=== PATIENT | female | born 1940 | race Caucasian/White ===

== ENCOUNTER 2017-12-12 15:45 | Outpatient (CLI) | payer MEDICARE ==
[~2017-12-12 15:45] MED LIST: ACET-2319 PO; APIX5TAB3 PO; ASPI-611 PO; ATOR20TA66 PO; CHOL100046 PO; DIGO250T77 PO; LEVO100T9 PO; MONT10TA21 PO; SOTA80TA73 PO
[2017-12-12 16:47] LABS: BASOPHILS % (AUTO) 0.6 % (0-1); EOSINOPHILS # (AUTO) 0.2 X10'3 (0-0.9); EOSINOPHILS % (AUTO) 2.9 % (0-6); HEMOGLOBIN 14.4 g/dl (12.0-16.0); LYMPHOCYTES # (AUTO) 1.6 X10'3 (1.1-4.8); LYMPHOCYTES % (AUTO) 25.5 % (21-51); MEAN CORPUSCULAR HEMOGLOBIN 29.3 PG (27.0-31.0); MEAN CORPUSCULAR HGB CONC 32.7 % (33.0-36.5); MEAN CORPUSCULAR VOLUME 89.4 FL (78-98); MEAN PLATELET VOLUME 8.3 FL (7.4-10.4); MONOCYTES # (AUTO) 0.7 X10'3 (0-0.9); MONOCYTES % (AUTO) 10.6 % (2-12); NEUTROPHILS # (AUTO) 3.8 X10'3 (1.8-7.7); NEUTROPHILS % (AUTO) 60.4 % (42-75); PLATELET COUNT 257 X10'3 (140-440); RED BLOOD COUNT 4.92 X10'6 (4.20-5.60); RED CELL DISTRIBUTION WIDTH 12.9 % (11.5-14.5); WHITE BLOOD COUNT 6.3 X10'3 (4.5-11.0)
[2017-12-12 17:03] LABS: ALANINE AMINOTRANSFERASE 84 U/L (12-78); ALBUMIN 3.7 G/DL (3.4-5.0); ALBUMIN/GLOBULIN RATIO 1.3 (1.1-1.5); ALKALINE PHOSPHATASE 93 IU/L (46-116); ANION GAP 6 (8-16); ASPARTATE AMINO TRANSFERASE 22 U/L (10-37); BILIRUBIN,TOTAL 0.5 MG/DL (0.1-1.0); BLOOD UREA NITROGEN 15 MG/DL (7-18); BUN/CREATININE RATIO 22.7 (6.6-38.0); CALCIUM 8.9 MG/DL (8.5-10.1); CHLORIDE 97 MMOL/L (99-107); CREATININE 0.66 MG/DL (0.40-0.90); GLUCOSE 90 MG/DL (70-104); POTASSIUM 4.4 MMOL/L (3.5-5.1); SODIUM 135 MMOL/L (135-145); TOTAL PROTEIN 6.5 G/DL (6.4-8.2); eGFR 87 ML/MIN
[2017-12-12 17:13] LABS: INR 1.2 INR
[2017-12-12 17:14] LABS: PARTIAL THROMBOPLASTIN TIME 27 SECONDS (22-32)
== END 2017-12-12 23:59 | disposition home or self-care (01) ==
LOC: LAB 15:45
PROVIDERS: ATTEND Internal Medicine Interventional Cardiology
DX: I48.0 Paroxysmal atrial fibrillation (principal); E78.49 Other hyperlipidemia; I10 Essential (primary) hypertension; I63.40 Cerebral infarction due to embolism of unspecified cerebral artery; I65.23 Occlusion and stenosis of bilateral carotid arteries; Z79.01 Long term (current) use of anticoagulants; Z72.89 Other problems related to lifestyle; Z87.891 Personal history of nicotine dependence
CPT/HCPCS: 36415; 80053; 80162; 85025; 85610; 85730

== ENCOUNTER 2017-12-17 10:12 | Day surgery (SDC) | payer MEDICARE ==
[~2017-12-17] VITALS: Ht 160 cm; Wt 57.2 kg
[2017-12-17] VITALS (23 sets, daily range): BP systolic 82–151; BP diastolic 30–112
[2017-12-17] MEDS ORDERED: MIDAZolam 5mg/ml 2ml vial IV ONE (10:50)
[2017-12-17] MEDS ORDERED: normal saline 1000ml 1,000 ML IV SCH (10:50)
[2017-12-17] MEDS ORDERED: fentaNYL/PF 50MCG/1 ML 2ML syringe IV ONE ×2 (10:50→12:45)
[2017-12-17] MEDS ORDERED: EDOX60TA PO (11:01)
[2017-12-17] MEDS ORDERED: amiodarone 50MG/ML inj IV ONE (12:40)
[2017-12-17] MEDS: amiodarone 150mg/dext, iso-os 100 ML IV SCH ×2 (12:52→13:04)
== END 2017-12-17 15:05 | disposition home or self-care (01) ==
LOC: SSTAY O 10:12
PROVIDERS: ATTEND Internal Medicine Interventional Cardiology
DX: I48.0 Paroxysmal atrial fibrillation (principal); I65.23 Occlusion and stenosis of bilateral carotid arteries; I10 Essential (primary) hypertension; E78.5 Hyperlipidemia, unspecified; E89.0 Postprocedural hypothyroidism; Z87.891 Personal history of nicotine dependence; Z90.49 Acquired absence of other specified parts of digestive tract; Z72.89 Other problems related to lifestyle; Z85.850 Personal history of malignant neoplasm of thyroid; Z86.73 Personal history of transient ischemic attack (TIA), and cerebral infarction without residual deficits; Z79.899 Other long term (current) drug therapy; Z98.890 Other specified postprocedural states; Z82.49 Family history of ischemic heart disease and other diseases of the circulatory system; Z83.6 Family history of other diseases of the respiratory system
CPT/HCPCS: 92960; 93005; J0282; J2250; J3010; J7030

== ENCOUNTER 2024-12-05 15:45 | Inpatient (IN) | payer MEDICARE ==
[~2024-12-05] VITALS: Ht 160 cm; Wt 54.5 kg
[~2024-12-05 15:45] MED LIST changes: -ACET-2319 PO; -APIX5TAB3 PO; -ASPI-611 PO; +DIGO250T2 PO; -DIGO250T77 PO; +EDOX60TA2 PO; +MONT-47 PO; -MONT10TA21 PO
--- NOTE | 2024-12-05 16:16 | ELECTROCARDIOGRAPH REPORT ---
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 Ruben Garzon Measurements Intervals [place] Rate: 103 P: 0 OK: 0 QRS: -75 QRSD: 133 T: 102 QT: 392 QTc: 513 Interpretive Statements Atrial fibrillation Ventricular premature complex Left bundle branch block Baseline wander in lead(s) V4 Electronically Signed On 12-11-2024 7:51:[address] Ruben Garzon Please click the below link to view image of tracing.
[2024-12-05 16:21] LABS: MEAN PLATELET VOLUME 7.6 FL (7.4-10.4); RED CELL DISTRIBUTION WIDTH 14.6 % (11.5-14.5)
[2024-12-05 16:41] LABS: CREATININE 0.74 MG/DL (0.40-0.90); PRO BRAIN NATRIURETIC PEPTIDE 1510 PG/ML (0-450); TOTAL CARBON DIOXIDE 26.0 MMOL/L (24-32); eCRCL 46 ML/MIN; eGFR 75 ML/MIN
--- NOTE | 2024-12-05 16:43 | Physician Documentation ---
History of Present Illness Chief Complaint: Weakness Stated Complaint: VOMITTING Time Seen by MD: 16:08 OK to notify your PCP?: Yes Source: patient Mode of Arrival: EMS, Air Transport Exam Limitations: no limitations HPI Ms. Carty is an 84 y/o female with PMhx significant for HTN, HLD, Mitral Valve Regurgitation now s/p clip, A-fib on Xarelto, and Hypothyroidism who presents her today as a transfer from [facility] for evaluation by ACS for an incarerated abdominal hernia and SBO. Over the past 3-4 days, she has had progressively worsening ABD pain. She was seen in the ED today and had a CT ABD/Pelvis as part of her evaluation that showed an anterior abdominal wall hernia in the lower ABD along the midline measuring 3.2 cm containing an obstructed loop of bowel and serving as the source of intra-abdominal high grade SBO. She was made NPO and transfer was initiated. Lactic was within normal range. UA with ? infection so received IV Pip-Tazo. She arrived here hemodynamically normal and without complaints. Actually states that her ABD feels a bit better. Medication Reconciliation Allergies: Coded Allergies: No Known Allergies (Unverified , 01/04/15) Scheduled Atorvastatin Calcium (Atorvastatin Calcium), 20 MG PO DAILY, (Reported) Cholecalciferol (Vitamin D), 1,000 UNIT PO DAILY, (Reported) Digoxin (Digitek), 125 MCG PO DAILY, (Reported) Edoxaban Tosylate (Savaysa), 1 TAB PO DAILY, (Reported) Levothyroxine Sodium (Levothyroxine Sodium), 100 MCG PO DAILY, (Reported) Montelukast Sodium (Singulair), 1 TAB PO DAILY, (Reported) Sotalol Hcl* (Betapace*), 1 TAB PO BID, (Reported) Past Medical History Past Medical History: Atrial Fibrillation, Hypothyroidism Past Surgical History: no surgical history Patient History: FH: emphysema FATHER, , Age: 73, Cause: Emphysema lung FH: heart disease MOTHER, , Age: 92, Cause: Stroke Alcohol Use: None Drug Use: none Lives with: Spouse Lives In: Home Review of Systems All Other Systems at this time: Reviewed and Negative Physical Exam Vital Signs: RN Vital Signs have been reviewed: Yes, Temperature: 98.0, Source: Oral, Heart Rate: 88, Respiratory Rate: 18, BP: 136/92, Pulse Oximetry: 97, Weight: 54.550 Oxygen Flow Rate: 3.0 Physical Exam GEN: Alert and oriented and in NAD. HEENT: NC/AT. PERRLA. No scleral icterus. MMM. No oral lesions. NECK: Supple. No JVD. CHEST: RRR. No M/G/T. LUNGS: CTA B. No W/R/R. ABD: Soft. NTND. + BS. No rebounding or guarding. BACK: No CVA TTP. EXT: No c/c/e. NEURO: Alert and oriented x 4. Cooperative. Sensorimotor intact x 4 extremities. General Appearance: alert Progress Results/Orders Reviewed/noted all lab results: Yes Results/Orders Orders - PEDRO AGUIRRE MD Chest,Single View (12/05/24 15:55) Monitor (12/05/24 15:55) Saline Lock (12/05/24 15:55) Oxygen (12/05/24 15:55) BMP (12/05/24 15:55) PBNP (12/05/24 15:55) Hs Troponin I W Calculations (12/05/24 15:55) Hs Troponin I W Calculations (12/05/24 17:55) Hs Troponin I W Calculations (12/05/24 18:55) Completed Orders - PEDRO AGUIRRE MD Chest,Single View (12/05/24 15:55) Cbc/Diff (12/05/24 15:55) Electrocardiogram (12/05/24 15:55) Vital Signs 12/05/24 12/05/24 15:46 15:58 Temp 98.0 Pulse 88 Resp 18 B/P (MAP) 136/92 Pulse Ox 97 O2 Flow Rate 3.0 Laboratory Tests Test 12/05/24 16:10 White Blood Count 8.2 Red Blood Count 4.96 Hemoglobin 12.9 Hematocrit 39.9 Mean Corpuscular Volume 80.5 Mean Corpuscular Hemoglobin 26.1 L Mean Corpuscular Hemoglobin Concent 32.4 L Red Cell Distribution Width 14.6 H Platelet Count 285 Mean Platelet Volume 7.6 Neutrophils (%) (Auto) 79.4 H Lymphocytes (%) (Auto) 9.1 L Monocytes (%) (Auto) 11.0 Eosinophils (%) (Auto) 0 Basophils (%) (Auto) 0.5 Neutrophils # (Auto) 6.5 Lymphocytes # (Auto) 0.7 L Monocytes # (Auto) 0.9 Eosinophils # (Auto) 0.0 Basophils # (Auto) 0.0 CBC Comment Chemistry Comments EKG/XRAY/CT/US/VASC/MRI EKG : Intepreting Monitor?: Yes Additional Comment Interpreted by me: Rate: +103 Rhythm: Atrial fibrillation [place]: Normal Intervals: LBBB ST waves: Nonspecific changes Interpretation: A-fib with LBBB Medical Decision Making Additional information obtaine: old records Findings While here in the ED, she remained hemodynamically normal with ABC's intact and in NAD. She is afebrile and nontoxic. Last oral intake was at [address] at OSH with SBP felt to be 2/2 an incarcerated hernia. Initial lactic normal. Resending labs here now. Will keep NPO. Lytes normal. Will admit to for ongoing management. Differential Dx:Considerations: Angina/RI, Aortic dissection, Bowel obstruction, Cholelithasis, Diverticular disease, Esophageal rupture, Esophagitis, Hernia, Inflammatory BD, Ischemic bowel, Pancreatitis, Urinary obstruction, Urinary tract infection, Urolithiasis Departure Disposition: 09 ADMITTED INPATIENT Admitted to Inpatient Unit: to surgeon Admission Level of Care: Med/Surg with Tele Impression: Primary Impression: Bowel obstruction Condition: Stable Referrals: NO PRIMARY CARE PROVIDER (PCP) Education Educated: Patient, Family Educated regarding: diagnosis, treatment ACF Form Admit Criteria Met or Not Met: YES Signature Scribe Signature: N/A Attestation: N/A PEDRO AGUIRRE MD Dec 05, 2024 16:43
--- NOTE | 2024-12-05 16:56 | RADIOLOGY REPORT ---
CHEST RADIOGRAPH Indication: CP Technique: Single frontal view of the chest was obtained Comparison: None FINDINGS: Lines and Tubes: None Lungs: Indistinctness of the left hemidiaphragm. No pneumothorax. Cardiomediastinal contours: Mild cardiomegaly with minimal Atherosclerotic calcification and uncoiling of the aorta. Bones: No acute osseous abnormality. Gas-filled mildly distended small bowel loops of the upper abdomen. IMPRESSION: Indistinctness of the left hemidiaphragm which may be from overlying cardiac silhouette. Underlying pleural effusion /atelectasis can not be excluded. Gas-filled mildly distended small bowel loops over the upper abdomen.
[2024-12-05] MEDS: normal saline 1000ml 1,000 ML IV ONE ×2 (17:10→18:34)
[2024-12-05] MEDS ORDERED: metoclopramide 5 mg/ml inj IV PRN (17:10)
[2024-12-05] MEDS ORDERED: potassium Cl 20 mEq SR tablet PO PRN (17:10)
[2024-12-05] MEDS ORDERED: ondansetron/PF 4mg/2ml inj IV PRN (17:10)
[2024-12-05] MEDS ORDERED: morphine 4 MG/ML inj SYRINge IV PRN ×2 (17:10)
[2024-12-05] MEDS ORDERED: magnesium sulf-water 4G/100mL 100 ML IV PRN (17:10)
[2024-12-05] MEDS ORDERED: HYDROcodone/acetaminophen 5mg/325mg tablet PO PRN (17:10)
[2024-12-05] MEDS ORDERED: magnesium sulf-water 2g/50mL 50 ML IV PRN (17:10)
[2024-12-05] MEDS ORDERED: mag hydrox/Alum hydrox/simeth 30ml oral suspension PO PRN (17:10)
[2024-12-05] MEDS ORDERED: potassium Cl 40MEQ/1/2NS 520ml 520 ML IV PRN (17:10)
[2024-12-05] MEDS ORDERED: HYDROcodone/acetaminophen 10/325mg tab PO PRN (17:10)
[2024-12-05] MEDS ORDERED: METO-384 PO (17:13)
[2024-12-05] MEDS ORDERED: LOSA-415 PO (17:13)
[2024-12-05] MEDS ORDERED: RIVA20TA PO (17:13)
[2024-12-05 17:27] LABS: PHOSPHORUS 3.5 MG/DL (2.3-4.5)
[2024-12-05] MEDS: albuterol 2.5 MG/3 ML nebule NEB ONE (17:29)
[2024-12-05] MEDS ORDERED: ipratropium/albuterol 3ml nebule NEB PRN (17:50)
[2024-12-05] MEDS ORDERED: albuterol 2.5 MG/3 ML nebule NEB PRN (17:50)
--- NOTE | 2024-12-05 17:54 | HISTORY AND PHYSICAL ---
History & Physical Providers to ~ History of Present Illness Reason for Admit\Complaint: SBO History of Present Illness Catherine Carty is a 84-year-old female with a past medical/surgical history of peritonitis and laparotomy in 2004, atrial fibrillation, mitral valve regurgitation status post clip, hypertension, hyperlipidemia, CVA who was transferred to [facility] from [facility] for management of SBO. Patient initially presented with chief complaints of acute onset abdominal pain with episodes of nausea and retching x 4 days. Patient reports last bowel movement being two days ago. Patient denies prior SC/CAD, DVT/PE, or GIB. Patient denies chest pain, palpitations, shortness of breath, diarrhea, fever, chills, dysuria. Patient reports some improvement of abdominal pain since onset of symptoms. Patient is to be admitted for further workups and treatment. Allergies: Coded Allergies: metronidazole (Verified Allergy, Severe, nausea and vomiting, 12/05/24) Home Medications Home Medications Active Reported Metoprolol Succinate 50 Mg Tab.sr.24h 1 Tab PO BID 30 Days Cozaar* (Losartan Potassium) 25 Mg Tablet 1 Tab PO DAILY 30 Days Xarelto (Rivaroxaban) 20 Mg Tablet 1 Tab PO DAILY 30 Days with food Vitamin D (Cholecalciferol) 1,000 Unit Capsule 1,000 Unit PO DAILY Singulair (Montelukast Sodium) 10 Mg Tablet 1 Tab PO DAILY Levothyroxine Sodium 100 Mcg Tablet 100 Mcg PO DAILY Atorvastatin Calcium 20 Mg Tablet 20 Mg PO DAILY Past Medical History Past Medical History Mitral valve regurgitation s/p clip Atrial fibrillation Hypertension Hyperlipidemia Hypothyroidism CVA, 2014 COPD Past Surgical History Surgical History Comment Thyroidectomy Laparotomy, 2004 Family History Family History: FH: emphysema FATHER, , Age: 73, Cause: Emphysema lung FH: heart disease MOTHER, , Age: 92, Cause: Stroke Past Social History Social History Comment Alcohol: Denies Tobacco: Denies Illicit drug use: Denies Living situation: Lives at home ROS ROS Other than positives in HPI, all 14 review of systems are negative Exam Vitals: Vital Signs Date Time Temp Pulse Resp B/P (MAP) Pulse Ox O2 Delivery O2 Flow Rate FiO2 12/05/24 16:46 99 18 159/110 (126) 96 0 12/05/24 15:46 98.0 General: Generalized weakness, A&Ox 3, NAD HEENT: Normocephalic, PERRLA Neck: Supple, trachea midline, no JVD Chest: Clear to auscultation bilaterally Cardiovascular: IRIR, grade II murmur over right 2nd intercostal space Abdomen: Mildly tender upper and lower quadrants of abdomen with palpation; hypoactive bowel sounds in lower quadrants of abdomen; negative rebound tenderness Extremities: No cyanosis/clubbing/or edema Central Nervous System: CN II-XII intact, no focal deficits Musculoskeletal: No paraspinal muscle tenderness, no muscle spasm Skin: Warm and intact Diagnostic Data Last Recorded Lab Results: 12/05/24 1610 12/05/24 1610 Additional Plan Assessment & Plan SBO Ventral hernia Strangulated hernia Hyponatremia Hypochloremia -at OSH, lactic acid 1.6, bicarb 26, wbc 9.24, lipase wnl, LFT unremarkable, CT abd/pelv w/ contrast reveals anterior abdominal wall hernia in the lower abdomen along the midline measuring 3.2 cm, containing obstructed loop of bowel and serving as a source of intra-abdominal high-grade small-bowel obstruction, dilated fluid-filled loops of small bowel throughout the abdomen up to 3.6 cm in diameter, anterior abdominal wall hernia containing mesenteric fat measuring 5.6 x 2 cm. No free fluid or air. -fluid resuscitation, NPO, NGT, abx, consulted Dr. Reyna Mitral valve regurgitation s/p clip (Dr. Hamilton) Atrial fibrillation, CVR COPD, not in acute exacerbation Hypertension Hyperlipidemia s/p Thyroidectomy Hypothyroidism CVA -EKG afib at 97bpm, follow TTE -prn hydralazine, follow lipid panel, TSH/T4, pending med rec DVT/VTE prophylaxis: SCDs Code status: DNR/DNI I spent a total of 35 minutes discussing Advanced Care Planning measures with the patient. Advance care planning: Discussed with patient the importance of advance care planning in case of emergent situation. We discussed various resuscitative measures/ ACP with the patient at the time of admission. Patient voiced understanding and patient has decided on a DNR/DNI status. Date of Service: Dec 05, 2024 Billing Provider: RAYMUNDO ALFARO Common Visit Codes: [id number] INP/OBS CARE (HIGH) Secondary Visit Codes: [id number] CARE PLAN 30 MINUTES RAYMUNDO ALFARO Dec 05, 2024 17:54
[2024-12-05] MEDS ORDERED: metroNIDAZOLE-Flagyl 500mg/NS 100 ML IV SCH (18:00)
[2024-12-05 18:03] LABS: CHOL/HDL RATIO 2.2 (0.00-4.99); LDL CHOLESTEROL 62 MG/DL (50-100)
[2024-12-05] MEDS: CefTRIAXone/D5W-Rocephin 1gm 50 ML IV ONE (18:04)
[2024-12-05] MEDS: normal saline 1000ml 1,000 ML IV SCH (18:07)
[2024-12-05] MEDS: PERFLUTREN PROTEIN-A MICROSPHR (Optison) 0.22 MG/ML 3ML VIAL IV ONE (18:34)
[2024-12-05 18:50] VITALS: PULSE 100; RESP 16; O2SAT 95
[2024-12-05 19:25] VITALS: BP 155/91; PULSE 100; RESP 19; TEMP 98; O2SAT 97
[2024-12-05 20:00] VITALS: RESP 19; O2SAT 97
[2024-12-05] MEDS: K and/or MAG REPLACEMENT MC SCH (20:00)
--- NOTE | 2024-12-05 20:05 | PROGRESS NOTE ---
Progress Note ID Providers to CC ~ Progress Note Progress Note: pt seen and examined-denies pain-needs repeat ct-hold MAXIMILIANO Solis MD Dec 05, 2024 20:05
[2024-12-05] MEDS: diatr meglu/diatrizoate 30ml oral sol.-(3 dose) bottle PO SCH (21:17)
[2024-12-05] MEDS: docusate sod 100mg capsule PO SCH (21:17)
[2024-12-05 22:00] VITALS: BP 129/69; PULSE 118; RESP 15; TEMP 98.3; O2SAT 98
[2024-12-05] MEDS: piperacillin/tazo 3.375gm/50ml 50 ML IV SCH (23:16)
[2024-12-06] VITALS (10 sets, daily range): BP systolic 90–139; BP diastolic 39–79; PULSE 70–102; RESP 13–33; TEMP 97.7–98.2; O2SAT 90–96
[2024-12-06 06:07] LABS: CREATININE 0.67 MG/DL (0.40-0.90); TOTAL CARBON DIOXIDE 28.3 MMOL/L (24-32); eCRCL 51 ML/MIN; eGFR 84 ML/MIN
[2024-12-06 06:44] LABS: LYMPHOCYTES % (MANUAL) 13.0 % (21-51); MONOCYTES % (MANUAL) 11.0 % (2-12); NEUTROPHILS % (MANUAL) 76.0 % (42-75); PLATELET ESTIMATE NORMAL
[2024-12-06] MEDS: normal saline 1000ml 1,000 ML IV SCH (06:50)
[2024-12-06 06:58] LABS: MEAN PLATELET VOLUME 7.9 FL (7.4-10.4); RED CELL DISTRIBUTION WIDTH 14.3 % (11.5-14.5)
[2024-12-06] MEDS ORDERED: CefTRIAXone/D5W-Rocephin 1gm 50 ML IV SCH (08:00)
--- NOTE | 2024-12-06 09:10 | PROGRESS NOTE ---
Daily Progress Note Providers to CC ~ Antibiotic Timeout Antibiotic Ordered?: Yes Subjective No acute events overnight. Patient examined at bedside. No new complaints, not in acute distress. Patient denies chest pain, sob, palpitations, abdominal pain, n/v/d. Patient had flatus and bowel movement this morning. Afib w/ rvr in 180s with ambulation today which spontaneously resolved to afib in 70s. Labs unremarkable. Repeat CT w/ oral reveals small-bowel obstruction with probable transition point in the left lower quadrant. Objective Vital Signs Date Time Temp Pulse Resp B/P (MAP) Pulse Ox O2 Delivery O2 Flow Rate FiO2 12/06/24 07:28 98.1 88 17 117/57 (77) 95 Room Air 12/05/24 20:00 0.0 21 Result Diagram: 12/06/2452112/06/24521 Physical Exam General: Generalized weakness, A&Ox 3, NAD HEENT: Normocephalic, PERRLA Neck: Supple, trachea midline, no JVD Chest: Clear to auscultation bilaterally Cardiovascular: IRIR, grade II murmur over right 2nd intercostal space Abdomen: Mildly tender upper and lower quadrants of abdomen with palpation; normoactive bowel sounds in four quadrants of abdomen; negative rebound tenderness Extremities: No cyanosis/clubbing/or edema Central Nervous System: CN II-XII intact, no focal deficits Musculoskeletal: No paraspinal muscle tenderness, no muscle spasm Skin: Warm and intact Problem\Assessment\Plan Assessment & Plan SBO Anterior abdominal wall hernia Strangulated hernia Hyponatremia Hypochloremia -at OSH, lactic acid 1.6, bicarb 26, wbc 9.24, lipase wnl, LFT unremarkable, CT abd/pelv w/ contrast reveals anterior abdominal wall hernia in the lower abdomen along the midline measuring 3.2 cm, containing obstructed loop of bowel and serving as a source of intra-abdominal high-grade small-bowel obstruction, dilated fluid-filled loops of small bowel throughout the abdomen up to 3.6 cm in diameter, anterior abdominal wall hernia containing mesenteric fat measuring 5.6 x 2 cm. No free fluid or air. -fluid resuscitation, NPO, NGT, abx, consulted Dr. Reyna, repeat CT w/ oral reveals small-bowel obstruction with probable transition point in the left lower quadrant, OR for ventral hernia repair 12/07 Mitral valve regurgitation s/p clip (Dr. Hamilton) Atrial fibrillation w/ RVR- POA COPD, not in acute exacerbation Hypertension Hyperlipidemia s/p Thyroidectomy Hypothyroidism CVA -EKG afib at 97bpm, TSH wnl, FT4 1.6, LDL62, TGL 54, follow TTE -start metoprolol tart, prn hydralazine DVT/VTE prophylaxis: SCDs Code status: DNR/DNI Date of Service: Dec 06, 2024 Billing Provider: RAYMUNDO ALFARO Common Visit Codes: [id number] INP/OBS CARE(HIGH) RAYMUNDO ALFARO Dec 06, 2024 09:10
--- NOTE | 2024-12-06 10:22 | RADIOLOGY REPORT ---
Exam: CT CT ABDOMEN PELVIS W/ ORAL CONTRAST History: sbo overnight prep Comparison Study: None Technique: Multidetector spiral CT of the abdomen was performed from lung bases to pubic symphysis. Imaging was performed without IV contrast. Axial, coronal and sagittal multiplanar reformats were obtained from the axial data set by the technologist. Radiation Dose : 1. Abdomen/Pelvis: CTDIvol 11 mGy, DLP 575 mGy*cm. Findings: Evaluation of solid organs is limited due to lack of intravenous contrast use. Lung Bases: No acute or significant lung base finding. Normal heart size. No pleural or pericardial effusion. Liver: The liver is normal in size. No focal lesions. Gallbladder and Biliary Tree: Cholelithiasis noted without secondary findings of cholecystitis or biliary obstruction. Spleen: Unremarkable Pancreas: The pancreas is grossly normal in appearance. Adrenal Glands: Unremarkable Kidneys: Kidneys are grossly normal without calculi or hydronephrosis. Bladder: Grossly unremarkable for degree of distention. Bowel: The stomach is grossly normal in appearance. Multiple abnormally dilated loops of small bowel are seen throughout the abdomen with probable transition point in the left lower quadrant, suggestive of small-bowel obstruction. The appendix is not visualized; however, no secondary findings of acute appendicitis identified. Colonic diverticulosis. Ascites: Trace abdominopelvic ascites. Lymphadenopathy: No mesenteric, retroperitoneal or periportal lymphadenopathy. Abdominal Wall and Mesentery: Moderate ventral hernia in the upper midline abdomen. Small ventral hernia in the lower midline abdomen containing small amount of ascites. Vasculature: The visualized abdominal aorta is normal in size and caliber. Evaluation of abdominal and pelvic vessels is limited due to lack of intravenous contrast. Pelvic Organs: Unremarkable Musculoskeletal: No aggressive focal bony lesions, acute fractures or dislocation. IMPRESSION: 1. Small-bowel obstruction with probable transition point in the left lower quadrant. 2. Cholelithiasis without secondary findings of cholecystitis or biliary obstruction. Radiation optimization: All CT scans at this facility use at least one of these dose optimization techniques: automated exposure control mA and/or kV adjustment per patient size (includes targeted exams where dose is matched to clinical indication) or iterative reconstruction.
[2024-12-06] MEDS: magnesium hydroxide 30ml (MOM) UD suspension PO PRN (11:49)
--- NOTE | 2024-12-06 16:10 | PROGRESS NOTE ---
Progress Note ID Providers to CC ~ Progress Note Progress Note: no complaints/vss/ct-reduction of hernia/labs noted a/p 1. ventral hernia-sbo resolving/repair saturday MAXIMILIANO HAMPTON MD Dec 06, 2024 16:10
[2024-12-07] VITALS (13 sets, daily range): BP systolic 101–163; BP diastolic 72–98; PULSE 69–146; RESP 14–28; TEMP 97.3–98.2; O2SAT 94–99
[2024-12-07 05:48] LABS: CREATININE 0.73 MG/DL (0.40-0.90); TOTAL CARBON DIOXIDE 27.1 MMOL/L (24-32); eCRCL 47 ML/MIN; eGFR 76 ML/MIN
[2024-12-07 05:56] LABS: MEAN PLATELET VOLUME 8.0 FL (7.4-10.4); RED CELL DISTRIBUTION WIDTH 14.3 % (11.5-14.5)
[2024-12-07] MEDS: cholecalciferol (vitamin D3) 1,000 unit (25mcg) tablet PO SCH (07:59)
--- NOTE | 2024-12-07 10:57 | PROGRESS NOTE ---
Daily Progress Note Providers to CC ~ Antibiotic Timeout Antibiotic Ordered?: Yes Subjective No acute events overnight. Patient examined at bedside. No new complaints, not in acute distress. Patient denies chest pain, sob, palpitations, abdominal pain, n/v/d. Patient had flatus and bowel movement this morning. Afib w/ rvr in 180s with ambulation which spontaneously resolved to afib in 70s. Patient is clinically and hemodynamically stable. Labs unremarkable. Ventral hernia repair today. Objective Vital Signs Date Time Temp Pulse Resp B/P (MAP) Pulse Ox O2 Delivery O2 Flow Rate FiO2 12/07/24 08:23 71 16 96 Room Air* 0 21 12/07/24 06:00 97.3 144/72 (96) Result Diagram: 12/07/2444912/07/24449 Physical Exam General: Generalized weakness, A&Ox 3, NAD HEENT: Normocephalic, PERRLA Neck: Supple, trachea midline, no JVD Chest: Clear to auscultation bilaterally Cardiovascular: IRIR, grade II murmur over right 2nd intercostal space Abdomen: Soft and nontender; normoactive bowel sounds in four quadrants of abdomen; negative rebound tenderness Extremities: No cyanosis/clubbing/or edema Central Nervous System: CN II-XII intact, no focal deficits Musculoskeletal: No paraspinal muscle tenderness, no muscle spasm Skin: Warm and intact Problem\Assessment\Plan Assessment & Plan SBO Anterior abdominal wall hernia Strangulated hernia Hyponatremia Hypochloremia -at OSH, lactic acid 1.6, bicarb 26, wbc 9.24, lipase wnl, LFT unremarkable, CT abd/pelv w/ contrast reveals anterior abdominal wall hernia in the lower abdomen along the midline measuring 3.2 cm, containing obstructed loop of bowel and serving as a source of intra-abdominal high-grade small-bowel obstruction, dilated fluid-filled loops of small bowel throughout the abdomen up to 3.6 cm in diameter, anterior abdominal wall hernia containing mesenteric fat measuring 5.6 x 2 cm. No free fluid or air. -fluid resuscitation, NPO, NGT, abx, consulted Dr. Reyna, repeat CT w/ oral reveals small-bowel obstruction with probable transition point in the left lower quadrant, OR for ventral hernia repair 12/07 12/07: ventral hernia repair today Mitral valve regurgitation s/p clip (Dr. Hamilton) Atrial fibrillation w/ RVR- POA COPD, not in acute exacerbation Hypertension Hyperlipidemia s/p Thyroidectomy Hypothyroidism CVA -EKG afib at 97bpm, TSH wnl, FT4 1.6, LDL62, TGL 54, TTE LVEF 50-55%, severely dilated left and right atrium -start metoprolol tart, prn hydralazine DVT/VTE prophylaxis: SCDs Code status: DNR/DNI Date of Service: Dec 07, 2024 Billing Provider: RAYMUNDO ALFARO Common Visit Codes: [id number] INP/OBS CARE(HIGH) RAYMUNDO ALFARO Dec 07, 2024 10:57
[2024-12-07] MEDS: hydrALAZINE 20mg/ml inj. IV PRN (17:23)
[2024-12-07] MEDS ORDERED: BUPIVAcaine 2.5mg/ml inj 50ml vial (contains preservative) ONE (17:40)
[2024-12-07] MEDS ORDERED: vancomycin 1,000mg inj ONE (17:40)
--- NOTE | 2024-12-07 18:18 | CARDIOLOGY REPORT ---
APPROVED REPORT EXAM: Comprehensive 2D, Doppler, and color-flow Echocardiogram. 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 103.1 cm/s AoV VTI 14.3 cm AO Peak GR. 4.3 mmHg AO Mean GR. 2 mmHg LVOT VTI 11.82 cm LVOT Peak Felipe. 98.8 cm/s REDD(VTI)/BSA 2.51 cm2/m2 REDD (VTI) 2.51 cm2 AV DI 0.83 % Mitral Valve MV Peak Gr. 18 mmHg MV Mean Gr. 7 mmHg MV PHT 60 ms MV VMax 209.2 cm/s MV VMean 124.1 cm/s MV VTI 36.7 cm Tricuspid Valve TR P. Velocity 217 cm/s RAP ESTIMATE 10 mmHg TR Peak Gr. 19 mmHg RVSP 29 mmHg LEFT VENTRICLE Normal LV size and wall thickness. Overall systolic function is mildly reduced. LVEF is 50-55%. RIGHT VENTRICLE RV is normal size and function. ATRIA Left atrium is severely dilated. Right atrium is severely dilated. AORTIC VALVE Trileaflet AV appears mildly sclerotic without stenosis. Mild insufficiency. MITRAL VALVE MitraClip is in place and functioning well with mild eccentric residual regurgitation. Peak / mean gradients of 18/7 mmHg through the valve. Peak velocity is measured at 209 m/s. TRICUSPID VALVE TV appears structurally normal with trace regurgitation. PULMONIC VALVE Normal PV without stenosis, physiologic insufficiency. GREAT VESSELS The aortic root is normal in size. PERICARDIUM Normal pericardium. No effusion. Other Information Study Quality: Adequate Conclusion Normal LV size and wall thickness. Overall systolic function is mildly reduced. LVEF is 50-55%. RV is normal size and function. Left atrium is severely dilated. Right atrium is severely dilated. Trileaflet AV appears mildly sclerotic without stenosis. Mild insufficiency. MitraClip is in place and functioning well with mild eccentric residual regurgitation. Peak / mean gradients of 18/7 mmHg through the valve. Peak velocity is measured at 209 m/s. TV appears structurally normal with trace regurgitation. Normal pericardium. No effusion.
--- NOTE | 2024-12-07 19:45 | PROGRESS NOTE ---
Progress Note ID Providers to CC ~ Progress Note Progress Note: discussed procedure including risks/benefits/alternatives MAXIMILIANO HAMPTON MD Dec 07, 2024 19:45
[2024-12-07] MEDS ORDERED: fentaNYL /PF 50mcg/ml 5ml ampule ONE (20:28)
[2024-12-07] MEDS ORDERED: rocuronium 10mg/ml inj IV ONE (20:32)
[2024-12-07] MEDS ORDERED: propofol inj 20 ML IV ONE (20:44)
[2024-12-07] MEDS ORDERED: dexamethasone sod phosphate 4mg/ml inj. ONE (22:16)
[2024-12-07] MEDS ORDERED: ondansetron/PF 4mg/2ml inj ONE (22:16)
[2024-12-07] MEDS ORDERED: acetaminophen 1,000mg/100ml IV 100 ML IV ONE (22:18)
[2024-12-07] MEDS ORDERED: glycopyrrolate 0.2mg/ml inj ONE (22:18)
--- NOTE | 2024-12-07 22:34 | OPERATIVE REPORT ---
Operative Report Providers to CC ~ Date of Procedure: Dec 07, 2024 Pre-Operative Diagnosis: venral hernia Post-Operative Diagnosis multiple ventral hernias Procedure Performed lap repair multiple ventral hernias/elizabeth Surgeon: david Steam Flattener vazquez Anesthesiologist: Tyrel Swartz Type of Anesthesia: General Findings: extensive adhesions/multiple fascial defects-total of 9 cm Estimated Blood Loss: min Specimen Removed: none MAXIMILIANO HAMPTON MD Dec 07, 2024 22:34
[2024-12-07] MEDS ORDERED: HYDROmorphone inj. 0.5 MG/0.5 ML DISP.SYRIN IV PRN (22:40)
[2024-12-07] MEDS ORDERED: labetalol 20mg/4ml (5mg/ml) syringe IV PRN (22:55)
[2024-12-07] MEDS ORDERED: ringers solution, lacted 1,000 ML IV SCH (22:55)
[2024-12-07] MEDS ORDERED: HYDROmorphone/PF 0.2 MG/ML SYRINGE IV PRN ×2 (22:55)
[2024-12-07] MEDS ORDERED: hydrALAZINE 20mg/ml inj. IV PRN (22:55)
[2024-12-07] MEDS ORDERED: fentaNYL/PF 50MCG/1 ML 2ML syringe IV PRN (22:55)
[2024-12-07] MEDS: fentaNYL/PF 50MCG/1 ML 2ML syringe ONE (22:58)
[2024-12-07] MEDS: fentaNYL/PF 50MCG/1 ML 2ML syringe IV PRN (22:58)
[2024-12-07] MEDS: ondansetron/PF 4mg/2ml inj IV PRN (23:05)
--- NOTE | 2024-12-07 23:09 | OPERATIVE REPORT ---
DATE OF SURGERY: 12/07/2024 DICTATING PHYSICIAN: Matheus Reyna MD PREOPERATIVE DIAGNOSES: Ventral hernia, fistula, and small bowel obstruction. POSTOPERATIVE DIAGNOSIS: Multiple ventral hernias. PROCEDURES PERFORMED: Robotic repair of multiple ventral hernias with mesh. SURGEON: Matheus Reyna MD MANAGER OF CORPORATE: None. ANESTHESIA: General/Dr. ____ INDICATIONS FOR OPERATION: An 84-year-old female. The patient was seen at [facility] with a ventral hernia, ____ small bowel obstruction. The patient was septic and transferred to [facility]. Bowel obstruction resolved. ____ spontaneously. She is now taken to surgery for repair. INTRAOPERATIVE FINDINGS: The patient had multiple fascial defects with a total of 9 cm. DESCRIPTION OF PROCEDURE: The patient was placed supine on the operating table. After induction of general anesthesia and placement of endotracheal tube, the abdomen was prepped and draped. A supraumbilical incision was then made and Artem port placed using open technique and pneumoperitoneum was begun by insufflation of CO2. Additional ports were placed in the left lateral abdomen. Robot was then brought to the field. Camera port docked. Camera targeted after being placed. Additional ports were then docked and instruments placed. The patient had some adhesions, these have been taken down. The patient had multiple fascial defects. Fascial defects were closed with sutures of V-Loc oversewn multiple times. Two 12 cm pieces of mesh was introduced in the abdominal cavity. Lower abdominal ventral hernia subsequently had mesh placed intraperitoneally. Mesh was sutured in place with running suture of dual V-Loc. The upper abdomen and additional piece of mesh was placed over the previously repaired defect with a running suture of 2-0 V-Loc. Hemostasis was found to be adequate. Robotic instruments were removed and robot was undocked from the field. Abdomen was copiously irrigated with large amount of antibiotic-containing solution. Ports were then removed under laparoscopic vision with no evidence of active bleeding. Final ports and camera were withdrawn. Pneumoperitoneum was evacuated. Wounds were closed in layers. The skin was closed with subcuticular stitches. Dressing applied. The patient was transferred to recovery in stable condition after reversing from general anesthesia. Matheus Reyna MD TID: [id number] RECEIPT: [id number] KB/[facility] [place]
[2024-12-07 23:34] LABS: ABG BASE EXCESS -2.2 mmol/L (-2.0-3.0); ABG HCO3 25.0 mmol/L (21.0-28.0); ABG OXYGEN SATURATION 98.6 % (94.0-98.0); ABG PCO2 (T) 50.6 mmHg (32.0-45.0); ABG PH (T) 7.306 (7.350-7.450); ABG PO2 (T) 120.1 mmHg (83.0-108.0); ALLEN'S TEST POSITIVE; FCOHb 0.9 % (0.5-1.5); FHHb 1.4 % (0.0-5.0); FIO2 36.0 mmHg/%; FLOW 4 L/min; FMetHb 0.3 % (0.0-1.5); FO2Hb 97.4 % (94.0-98.0); MODE NASAL CANNULA; PATIENT TEMPERATURE 36.0; TOTAL HEMOGLOBIN 12.9 G/dl (12.0-16.0)
[2024-12-07] MEDS: ketorolac trometh 30MG/ML vial 30 MG/ML VIAL IV ONE (23:53)
[2024-12-08] VITALS (17 sets, daily range): BP systolic 97–143; BP diastolic 47–85; PULSE 58–91; RESP 14–23; TEMP 97.2–97.6; O2SAT 92–97
[2024-12-08] MEDS: HYDROcodone/acetaminophen 5mg/325mg tablet PO PRN (02:19)
[2024-12-08 06:49] LABS: MEAN PLATELET VOLUME 7.8 FL (7.4-10.4); RED CELL DISTRIBUTION WIDTH 14.4 % (11.5-14.5)
[2024-12-08 07:14] LABS: CREATININE 0.57 MG/DL (0.40-0.90); TOTAL CARBON DIOXIDE 30.1 MMOL/L (24-32); eCRCL 60 ML/MIN; eGFR > 90 ML/MIN
[2024-12-08] MEDS: potassium Cl 20 mEq SR tablet PO PRN ×2 (07:30→20:25)
--- NOTE | 2024-12-08 09:07 | CONSULTATION ---
DATE OF CONSULTATION: 12/05/2024 DICTATING PHYSICIAN: Matheus Reyna MD REASON FOR CONSULTATION: Evaluation of ventral hernia with small bowel obstruction. HISTORY OF PRESENT ILLNESS: The patient is an 84-year-old female who was transferred from [facility] and reports some SBO and ventral hernia. A surgical evaluation is now requested. On further questioning, the patient has severe nausea and vomiting. After arrival, the pain is much improved. PAST MEDICAL HISTORY: Significant for atrial fibrillation, mitral valve regurgitation, hypertension, hyperlipidemia, cerebrovascular disease. PAST SURGICAL HISTORY: Previous laparotomy for peritonitis, thyroidectomy. HOME MEDICATIONS: Include metoprolol, Cozaar, Xarelto, , levothyroxine, atorvastatin. ALLERGIES: METRONIDAZOLE. SOCIAL HISTORY: No tobacco or alcohol use. REVIEW OF SYSTEMS: See H and P. PHYSICAL EXAMINATION: GENERAL: A well-nourished female, in no distress. VITAL SIGNS: Unremarkable. HEART: Regular rate and rhythm. LUNGS: Clear to auscultation. ABDOMEN: Relatively soft and nontender with no palpable masses that I can appreciate. No signs of peritonitis. EXTREMITIES: Unremarkable. NEUROLOGIC: Nonfocal. LABORATORY DATA: Labs include WBC of 8, hematocrit of 39, platelet count 285. Chemistries: BUN and creatinine are 20 and 0.7, CO2 is 26. IMAGING STUDIES: From outside facility reveals ventral hernia containing small bowel. IMPRESSION: * History of small bowel obstruction, ventral hernia. Hernia appears to have reduced itself spontaneously. * History of hypertension. * Hyperlipidemia. * Cerebrovascular disease. * History of atrial fibrillation. PLAN: Repeat CT abdomen and pelvis to better define possible ventral hernia. Matheus Reyna MD TID: [id number] RECEIPT: [id number] JOSE ALBERTO/AMI
--- NOTE | 2024-12-08 15:17 | ELECTROCARDIOGRAPH REPORT ---
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 GRAZYNA Mccord Measurements Intervals Te[place]ro Rate: 60 P: 0 MD: 0 QRS: -64 QRSD: 144 T: 97 QT: 494 QTc: 494 Interpretive Statements Atrial fibrillation Ventricular premature complex Left bundle branch block Electronically Signed On 12-09-2024 19:47:[address] GRAZYNA Mccord Please click the below link to view image of tracing.
[2024-12-08] MEDS ORDERED: magnesium sulf-water 4G/100mL 100 ML IV PRN (16:05)
[2024-12-08] MEDS ORDERED: potassium Cl 20 mEq SR tablet PO PRN (16:05)
[2024-12-08] MEDS ORDERED: potassium Cl 40MEQ/1/2NS 520ml 520 ML IV PRN (16:05)
[2024-12-08] MEDS ORDERED: magnesium sulf-water 2g/50mL 50 ML IV PRN (16:05)
[2024-12-08 17:17] LABS: APTT 24 SECONDS (22-32); INR 1.2 INR
--- NOTE | 2024-12-08 18:24 | PROGRESS NOTE ---
Daily Progress Note Providers to CC No new complaint today, resting comfortably in the bed ~ Central Line/PICC still needed: No Stacy-Non Protocol Stacy Indications Met/Not Met: F/C Indications Not Met Antibiotic Timeout Antibiotic Ordered?: Yes MRSA Education MRSA Education Provided to pt: Yes Subjective As above Objective Vital Signs Date Time Temp Pulse Resp B/P (MAP) Pulse Ox O2 Delivery O2 Flow Rate FiO2 12/08/24 11:38 62 12/08/24 10:00 97.3 17 113/47 (69) 94 Nasal Cannula 1.0 12/08/24 08:04 21 Vital signs, stable ,afebrile. Pulse Oximetry reflects adequate oxygenation. General: well developed, well nourished. Awake , alert, and oriented x4, resting comfortably in the bed, in no acute distress . Skin: Warm, dry, no pallor, no rash or petechiae. HEENT: Atraumatic, normocephalic, EOMI, anicteric sclera B; pink conjunctiva; PERRLA, normal oropharynx, moist oral and nasal mucosa. Tympanic membrane , nose , throat clear. Neck: Trachea midline. Supple, full range of motion, no JVD, bruit , hepatojugular reflex , lymphadenopathy or masses, or other lesions Cardiac: Regular rhythm, regular rate no murmurs, rubs, or gallops. Normal S1 and S2, no S3 noticed. PMI is normal. Respiratory: Equal breath sounds bilaterally, no tachypnea; lungs clear to auscultation bilaterally, no wheezing ,rub or rales, or crackles. Chest wall is symmetric and without deformity. No signs of trauma. Chest wall is nontender. No signs of respiratory distress. Resonance is normal upon percussion bilaterally. Gastrointestinal: Abdomen symmetric, non-distended, soft, non-tender, normal bowel sounds x4 quadrant, normoactive, no hepatosplenomegaly , no masses , no bruit, no flank pain bilaterally. No voluntary guarding, rebound, or rigidity. No tenderness to percussion. No pulsatile masses. Equal femoral pulses. No Dominguez's sign or McBurney point tenderness. Dressing clean dry intact Back; no CVA tenderness bilaterally, no deformities. Neck and back are without deformity as well. No tenderness noted on palpation of the spinous processes. Spinous processes are midline. Cervical, thoracic, and lumbar paraspinal muscles are not tender and are without spasm. Musculoskeletal: Extremities, normal range of motion, non-tender, muscle strength 5/5 x 4. Negative Homans signs bilaterally on lower extremity. Distal pulses full symmetrical, no clubbing, cyanosis , edema. Neurological: Speech is clear, alert, and oriented x 4. No motor or sensory deficit, deep tendon reflexes normal, cerebellar intact. Cranial nerves II-XII intact. Psych: Alert and or appropriate, normal affect. Vascular: Good distal pulses, which are equal x4; capillary refill less than 2 seconds. Lymphatic, no lymphadenopathy. Result Diagram: 12/08/2461612/08/24616 Coagulation Studies Laboratory Tests Test 12/08/24 16:23 Prothrombin Time 12.4 SECONDS (9.0-12.0) H INR International Normalized Ratio 1.2 INR Activated Partial Thromboplast Time 24 SECONDS (22-32) Coagulation Comments Problem\Assessment\Plan Assessment & Plan SBO Anterior abdominal wall hernia Strangulated hernia Hyponatremia, IV normal saline Hypochloremia Status post SBO, ventral hernia repair postoperative day 1., good recovery Mitral valve regurgitation s/p clip (Dr. Hamilton) Atrial fibrillation w/ RVR- POA COPD, not in acute exacerbation Hypertension Hyperlipidemia s/p Thyroidectomy Hypothyroidism CVA -EKG afib at 97bpm, TSH wnl, FT4 1.6, LDL62, TGL 54, TTE LVEF 50-55%, severely dilated left and right atrium -start metoprolol tart, prn hydralazine DVT/VTE prophylaxis: SCDs Code status: DNR/DNI Sepsis Screening Reassessment Date: Dec 08, 2024 Date of Service: Dec 08, 2024 Billing Provider: ELLIS HIGGINS MD Common Visit Codes: [id number] INP/OBS CARE(HIGH) ELLIS HIGGINS MD Dec 08, 2024 18:24
[2024-12-08] MEDS: normal saline 1000ml 1,000 ML IV SCH (20:25)
--- NOTE | 2024-12-08 21:20 | PROGRESS NOTE ---
Progress Note ID Providers to CC ~ Progress Note Progress Note: denies pain/vss/abd-nondistended/labs noted a/p 1. s/p robo incisional hernia repair-slow progress/cont supportive care MAXIMILIANO HAMPTON MD Dec 08, 2024 21:19
[2024-12-09] VITALS (7 sets, daily range): BP systolic 138–159; BP diastolic 78–91; PULSE 60–79; RESP 14–18; TEMP 97.2–98; O2SAT 93–100
[2024-12-09 06:09] LABS: MEAN PLATELET VOLUME 8.1 FL (7.4-10.4); RED CELL DISTRIBUTION WIDTH 14.6 % (11.5-14.5)
[2024-12-09 06:10] LABS: CREATININE 1.05 MG/DL (0.40-0.90); TOTAL CARBON DIOXIDE 27.9 MMOL/L (24-32); eCRCL 32 ML/MIN; eGFR 50 ML/MIN
--- NOTE | 2024-12-09 15:41 | PROGRESS NOTE ---
Progress Note ID Providers to CC ~ Progress Note Progress Note: doing well/home in am MAXIMILIANO HAMPTON MD Dec 09, 2024 15:41
--- NOTE | 2024-12-09 17:35 | PROGRESS NOTE ---
Daily Progress Note Providers to CC Doing fine, no new complaint, good appetite good sleep, pain well controlled ~ Central Line/PICC still needed: No Stacy-Non Protocol Stacy Indications Met/Not Met: F/C Indications Not Met Antibiotic Timeout Antibiotic Ordered?: Yes MRSA Education MRSA Education Provided to pt: Yes Subjective As above Objective Vital Signs Date Time Temp Pulse Resp B/P (MAP) Pulse Ox O2 Delivery O2 Flow Rate FiO2 12/09/24 16:06 68 18 93 Room Air* 0 21 12/09/24 10:00 97.8 138/78 (98) Vital signs, stable ,afebrile. Pulse Oximetry reflects adequate oxygenation. General: well developed, well nourished. Awake , alert, and oriented x4, resting comfortably in the bed, in no acute distress . Skin: Warm, dry, no pallor, no rash or petechiae. HEENT: Atraumatic, normocephalic, EOMI, anicteric sclera B; pink conjunctiva; PERRLA, normal oropharynx, moist oral and nasal mucosa. Tympanic membrane , nose , throat clear. Neck: Trachea midline. Supple, full range of motion, no JVD, bruit , hepatojugular reflex , lymphadenopathy or masses, or other lesions Cardiac: Regular rhythm, regular rate no murmurs, rubs, or gallops. Normal S1 and S2, no S3 noticed. PMI is normal. Respiratory: Equal breath sounds bilaterally, no tachypnea; lungs clear to auscultation bilaterally, no wheezing ,rub or rales, or crackles. Chest wall is symmetric and without deformity. No signs of trauma. Chest wall is nontender. No signs of respiratory distress. Resonance is normal upon percussion bilaterally. Gastrointestinal: Abdomen symmetric, non-distended, soft, non-tender, normal bowel sounds x4 quadrant, normoactive, dressing clean dry intact no masses , no bruit, no flank pain bilaterally. No voluntary guarding, rebound, or rigidity. No tenderness to percussion. No pulsatile masses. Equal femoral pulses. No Dominguez's sign or McBurney point tenderness. Back; no CVA tenderness bilaterally, no deformities. Neck and back are without deformity as well. No tenderness noted on palpation of the spinous processes. Spinous processes are midline. Cervical, thoracic, and lumbar paraspinal muscles are not tender and are without spasm. Musculoskeletal: Extremities, normal range of motion, non-tender, muscle strength 5/5 x 4. Negative Homans signs bilaterally on lower extremity. Distal pulses full symmetrical, no clubbing, cyanosis , edema. Neurological: Speech is clear, alert, and oriented x 4. No motor or sensory deficit, deep tendon reflexes normal, cerebellar intact. Cranial nerves II-XII intact. Psych: Alert and or appropriate, normal affect. Vascular: Good distal pulses, which are equal x4; capillary refill less than 2 seconds. Lymphatic, no lymphadenopathy. Result Diagram: 12/09/2445412/09/24454 Coagulation Studies Laboratory Tests Test 12/08/24 16:23 Prothrombin Time 12.4 SECONDS (9.0-12.0) H INR International Normalized Ratio 1.2 INR Activated Partial Thromboplast Time 24 SECONDS (22-32) Coagulation Comments Problem\Assessment\Plan Assessment & Plan SBO Anterior abdominal wall hernia Strangulated hernia Hyponatremia, IV normal saline Hypochloremia Status post SBO, ventral hernia repair postoperative day 1., good recovery Mitral valve regurgitation s/p clip (Dr. Hamilton) Atrial fibrillation w/ RVR- POA COPD, not in acute exacerbation Hypertension Hyperlipidemia s/p Thyroidectomy Hypothyroidism CVA -EKG afib at 97bpm, TSH wnl, FT4 1.6, LDL62, TGL 54, TTE LVEF 50-55%, severely dilated left and right atrium -start metoprolol tart, prn hydralazine DVT/VTE prophylaxis: SCDs Code status: DNR/DNI Sepsis Screening Reassessment Date: Dec 09, 2024 Date of Service: Dec 09, 2024 Billing Provider: ELLIS HIGGINS MD Common Visit Codes: [id number] INP/OBS CARE(MOD) ELLIS HIGGINS MD Dec 09, 2024 17:35
[2024-12-10 05:50] LABS: MEAN PLATELET VOLUME 8.0 FL (7.4-10.4); RED CELL DISTRIBUTION WIDTH 14.9 % (11.5-14.5)
[2024-12-10 05:54] LABS: CREATININE 0.57 MG/DL (0.40-0.90); TOTAL CARBON DIOXIDE 26.4 MMOL/L (24-32); eCRCL 60 ML/MIN; eGFR > 90 ML/MIN
[2024-12-10 06:00] VITALS: BP 150/90; PULSE 82; RESP 12; TEMP 97.9; O2SAT 96
[2024-12-10 07:54] VITALS: PULSE 95; RESP 18; O2SAT 97
[2024-12-10 08:00] VITALS: RESP 12; O2SAT 96
[2024-12-10 10:00] VITALS: BP 114/73; PULSE 69; RESP 26; TEMP 97.7; O2SAT 96
--- NOTE | 2024-12-10 17:27 | DISCHARGE SUMMARY ---
Discharge Summary Providers to No new complaint today cleared for discharge by surgeon, ~ Discharge Summary Assessment SBO Ventral hernia, status post ventral hernia repair by surgeon Strangulated hernia Hyponatremia Hypochloremia Mitral valve regurgitation s/p clip Atrial fibrillation Hypertension Hyperlipidemia Hypothyroidism CVA, 2014 COPD Admission Diagnosis: venral hernia Admission Diagnosis Comment: SBO Ventral hernia, status post ventral hernia repair by surgeon Strangulated hernia Hyponatremia Hypochloremia Mitral valve regurgitation s/p clip Atrial fibrillation Hypertension Hyperlipidemia Hypothyroidism CVA, 2014 COPD Hospital Course DATE OF ADMISSION: December 05, 2024 DATE OF DISCHARGE: December 10, 2024 Discharge Diagnosis\Comment: SBO Ventral hernia, status post ventral hernia repair by surgeon Strangulated hernia Hyponatremia Hypochloremia Mitral valve regurgitation s/p clip Atrial fibrillation Hypertension Hyperlipidemia Hypothyroidism CVA, 2014 COPD Operations\Procedures: Ventral hernia repair Consultants: Surgeon Complications: Non Condition on DC: Stable Discharge Summary: Catherine Carty is a 84-year-old female with a past medical/surgical history of peritonitis and laparotomy in 2004, atrial fibrillation, mitral valve regurgitation status post clip, hypertension, hyperlipidemia, CVA who was transferred to [facility] from [facility] for management of SBO. Patient initially presented with chief complaints of acute onset abdominal pain with episodes of nausea and retching x 4 days. Patient reports last bowel movement being two days ago. Patient denies prior OK/CAD, DVT/PE, or GIB. Patient denies chest pain, palpitations, shortness of breath, diarrhea, fever, chills, dysuria. Patient reports some improvement of abdominal pain since onset of symptoms. Patient is to be admitted for further workups and treatment. After admission patient was extensively evaluated treated including ventral hernia repaired, after surgery doing fine, was cleared today by surgeon to be discharged, she will be discharged in stable condition, medication reconciled, follow-up with PCP surgeon three day, today on physical exam Vital signs, stable ,afebrile. Pulse Oximetry reflects adequate oxygenation. General: well developed, well nourished. Awake , alert, and oriented x4, resting comfortably in the bed, in no acute distress . Skin: Warm, dry, no pallor, no rash or petechiae. HEENT: Atraumatic, normocephalic, EOMI, anicteric sclera B; pink conjunctiva; PERRLA, normal oropharynx, moist oral and nasal mucosa. Tympanic membrane , nose , throat clear. Neck: Trachea midline. Supple, full range of motion, no JVD, bruit , hepatojugular reflex , lymphadenopathy or masses, or other lesions Cardiac: Regular rhythm, regular rate no murmurs, rubs, or gallops. Normal S1 and S2, no S3 noticed. PMI is normal. Respiratory: Equal breath sounds bilaterally, no tachypnea; lungs clear to auscultation bilaterally, no wheezing ,rub or rales, or crackles. Chest wall is symmetric and without deformity. No signs of trauma. Chest wall is nontender. No signs of respiratory distress. Resonance is normal upon percussion bilaterally. Gastrointestinal: Abdomen symmetric, non-distended, soft, non-tender, normal bowel sounds x4 quadrant, normoactive, no hepatosplenomegaly , dressing clean dry intact no masses , no bruit, no flank pain bilaterally. No voluntary guarding, rebound, or rigidity. No tenderness to percussion. No pulsatile masses. Equal femoral pulses. No Dominguez's sign or McBurney point tenderness. Back; no CVA tenderness bilaterally, no deformities. Neck and back are without deformity as well. No tenderness noted on palpation of the spinous processes. Spinous processes are midline. Cervical, thoracic, and lumbar paraspinal muscles are not tender and are without spasm. : normal external genitalia, without lesions, swelling, masses or tenderness. Musculoskeletal: Extremities, normal range of motion, non-tender, muscle strength 5/5 x 4. Negative Homans signs bilaterally on lower extremity. Distal pulses full symmetrical, no clubbing, cyanosis , edema. Neurological: Speech is clear, alert, and oriented x 4. No motor or sensory deficit, deep tendon reflexes normal, cerebellar intact. Cranial nerves II-XII intact. Psych: Alert and or appropriate, normal affect. Vascular: Good distal pulses, which are equal x4; capillary refill less than 2 seconds. Lymphatic, no lymphadenopathy. *Problems/Diagnosis: (1) Atrial fibrillation Status: Acute (2) Bowel obstruction Status: Acute (3) CVA (cerebral vascular accident) Status: Acute Total Time Spent on D/C: > 30 Minutes Date of Service: Dec 10, 2024 Billing Provider: ELLIS HIGGINS MD Common Visit Codes: 37673-MEQ/OBS DISCH DAY >30min ELLIS HIGGINS MD Dec 10, 2024 17:27
== END 2024-12-10 11:35 | disposition home health service (06) | DRG 354 ==
LOC: ER 15:46 → ORTHO 4S 17:18 → UNDOADMIN 20:14 → ORTHO 4S 20:50
PROVIDERS: ADMIT Nurse Practitioner Family; ATTEND Nurse Practitioner Family
PROC: 8E0W4CZ Robotic Assisted Procedure of Trunk Region, Percutaneous Endoscopic Approach (ICD-10-PCS; 2024-12-07)
PROC: 0WUF4JZ Supplement Abdominal Wall with Synthetic Substitute, Percutaneous Endoscopic Approach (ICD-10-PCS; principal; 2024-12-07 20:19)
DX: K43.6 Other and unspecified ventral hernia with obstruction, without gangrene (principal); E87.1 Hypo-osmolality and hyponatremia; K56.50 Intestinal adhesions [bands], unspecified as to partial versus complete obstruction; I10 Essential (primary) hypertension; E78.5 Hyperlipidemia, unspecified; E87.8 Other disorders of electrolyte and fluid balance, not elsewhere classified; Z66 Do not resuscitate; I48.91 Unspecified atrial fibrillation; E89.0 Postprocedural hypothyroidism; Z79.899 Other long term (current) drug therapy; Z88.1 Allergy status to other antibiotic agents; Z79.01 Long term (current) use of anticoagulants; Z86.73 Personal history of transient ischemic attack (TIA), and cerebral infarction without residual deficits; Z88.3 Allergy status to other anti-infective agents
CPT/HCPCS: 36415; 36600; 71045; 74176; 80048; 80053; 80061; 82803; 83605; 83735; 83880; 83930; 84100; 84439; 84443; 84484; 85007; 85018; 85025; 85610; 85730; 86885; 86900; 86901; 87081; 93005; 93306; 94760; 96365; 96366; 97116; 97161; 97530; 99285; A4215; A4615; A4618; C1758; C1781; G0378; J0131; J0360; J0690; J0696; J1100; J1885; J2405; J2543; J2704; J2710; J3010; J3373; J3490; J7030; J7120; Q9963